=== PATIENT | female | born 1955 | race Hispanic/Latino ===

== ENCOUNTER 2021-03-26 06:24 | Day surgery (SDC) | payer MEDICARE ==
[2021-03-26 07:32] LABS: Hematocrit 35.9 % (30.3-42.9); Hemoglobin 11.4 gm/dl (10.1-14.3); Mean Corpuscular HGB Conc 32 % (30-34); Mean Corpuscular Volume 81 fl (79-97); Platelet Count 326 K/mm3 (140-440); Red Blood Count 4.45 M/mm3 (3.65-5.03); Red Cell Distribution Width 15.2 % (13.2-15.2)
[2021-03-26 07:44] LABS: INR 0.96 (0.87-1.13)
[2021-03-26 07:45] LABS: BUN/Creatinine Ratio 22; Blood Urea Nitrogen 20 mg/dL (7-17); Calcium 9.9 mg/dL (8.4-10.2); Hemolysis Index 35; Partial Thromboplastin Time 36.5 Sec. (24.2-36.6)
[2021-03-26] MEDS ORDERED: SODIUM CHLORIDE 0.9% 500 ML 500 ML IV SCH (08:00)
[2021-03-26] MEDS ORDERED: HEPARIN 10,000 UNITS/10 ML VIAL ONE ×3 (08:38→10:30)
[2021-03-26] MEDS ORDERED: HEPARIN/NS 5000 UNIT/500ML 1,000 ML IR ONE (08:38)
[2021-03-26] MEDS ORDERED: LIDOCAINE (2%) 20 MG/1 ML VIAL 20 ML MDV INFILTRATI ONE (08:38)
--- NOTE | 2021-03-26 09:40 | Short Stay Summary ---
Short Stay Documentation Date of service: 03/26/21 Narrative H&P: 66-year-old female with past medical history of left lower extremity phlegmasia status post thrombectomy, stenting, and fasciotomies by Dr. Valverde who subsequently developed 3-4+ swelling of the left lower extremity refractory to radiofrequency closure of the superficial veins. Diagnostic venography was then performed demonstrating occluded left iliac vein stent with extrinsic compression and underlying May Thurner. Patient presents for treatment. Risk, benefits, and alternatives discussed. Patient agrees with procedure. - History Principal diagnosis: Extrinsic compression, DVT, left iliac vein occlusion H&P: obtained from office - Allergies and Medications Current Medications: Allergies clindamycin Allergy (Verified 03/26/21 07:46) Hives ranitidine [From Zantac] Allergy (Verified 03/26/21 07:23) Hives Sulfa (Sulfonamide Antibiotics) Allergy (Verified 03/26/21 07:23) Hives Home Medications Medication Instructions Recorded Confirmed Last Taken Type Apixaban [Eliquis] 5 mg PO BID 03/26/21 03/26/21 03/26/21 History 5 mg Dulaglutide [Trulicity] 1.5 mg SQ 1XW 03/26/21 03/26/21 03/23/21 History 1.5 mg Esomeprazole Magnesium [Nexium 20 mg PO DAILY 03/26/21 03/26/21 03/26/21 History 24Hr] 20 mg Gabapentin 300 mg PO DAILY 03/26/21 03/26/21 03/25/21 History 1 tab Insulin Lispro [Humalog 100 100 unit SQ TID 03/26/21 03/26/21 03/26/21 History UNITS/ML Kwikpen] Oxycodone HCl/Acetaminophen 1 each PO Q4HR 03/26/21 03/26/21 Unknown History [Oxycodone-Acetaminophen 10-325] Propranolol HCl [Inderal Xl] 80 mg PO DAILY 03/26/21 03/26/21 03/26/21 History 1 tab Rosuvastatin Calcium [Crestor] 40 mg PO DAILY 03/26/21 03/26/21 03/25/21 History 1 tab Valsartan/Hydrochlorothiazide 320 mg PO DAILY 03/26/21 03/26/21 03/25/21 History [Valsartan-Hctz 320-12.5 mg Tab] 1 tab amLODIPine [Norvasc] 5 mg PO DAILY 03/26/21 03/26/21 03/26/21 History 5 mg Active Medications Sodium Chloride (Nacl 0.9% 500 Ml) 500 mls @ 50 mls/hr IV DIRECT BRANDO Stop: 03/26/21 21:00 - Physical exam General appearance: no acute distress Lungs: Normal air movement Gastrointestinal: normal Extremities: abnormal (3+ edema LLE) - Brief post op/procedure progress note Date of procedure: 03/26/21 Pre-op diagnosis: LLE DVT, May thurner, extrinsic compression, history of phlegmasia Post-op diagnosis: same Procedure: 1. Ultrasound-guided access of the left superficial femoral vein. 2. Venography of the left lower extremity. 3. Venous thrombectomy of the left common iliac vein with a 7 German poultry cleaner thrombectomy device 4. Aspiration thrombectomy of the left common iliac vein with an 8 German MPA guide and 6 German MPA guide 5. Angioplasty of the left common iliac vein, left external iliac vein, and left common femoral vein with a 12 mm x 40 mm angioplasty balloon. 6. Angioplasty of the left common iliac vein with a 14 mm x 40 mm angioplasty balloon 7. Intravascular ultrasound of the IVC, left common iliac vein, left external iliac vein, and left common femoral vein 8. Stenting of the left common iliac vein with a 14 mm x 150 mm Abre stent 9. Postdilatation of the left common iliac vein with a 14 mm x 40 mm angioplasty balloon 10. Post dilatation of the left external iliac vein and common femoral vein with a 12 mm x 40 mm angioplasty balloon Anesthesia: local (w/ conscious sedation) Surgeon: JEAN SANTACRUZ Estimated blood loss: minimal Condition: stable - Hospital course Hospital course: Patient tolerated procedure well. No immediate postprocedural complications. - Disposition Condition at discharge: Stable Disposition: 01 HOME / SELF CARE / HOMELESS - Discharge Diagnoses (1) Deep vein thrombosis (DVT) of iliac vein of left lower extremity Status: Acute (2) Vein compression Status: Acute Short Stay Discharge Plan Activity: advance as tolerated Weight Bearing Status: Weight Bear as Tolerated (do not lift more than 10 lbs for 1 week) Diet: regular Wound: keep clean and dry Follow up with: MIGEL WRIGHT MD [Primary Care Provider] - 7 Days Prescriptions: oxyCODONE /ACETAMINOPHEN [Percocet 5/325 mg] 1 tab PO Q4HR PRN #25 tablet PRN Reason: Pain
[2021-03-26] MEDS: fentaNYL 100 MCG/2 ML INJ ONE ×4 (10:11→11:20)
[2021-03-26] MEDS: MIDAZOLAM 2 MG/2 ML INJ ONE ×5 (10:11→11:20)
[2021-03-26] MEDS ORDERED: fentaNYL 100 MCG/2 ML INJ ONE ×2 (10:23→11:17)
[2021-03-26] MEDS ORDERED: diphenhydrAMINE 50 MG/ML VIAL ONE (10:30)
[2021-03-26] MEDS ORDERED: MIDAZOLAM 2 MG/2 ML INJ ONE (11:17)
--- NOTE | 2021-03-26 11:54 | Operative Report ---
Operative Report Operative Report: EXAM: 1. Ultrasound-guided access of the left superficial femoral vein. 2. Venography of the left lower extremity. 3. Selection of the left iliac veins and IVC with venography. 4. Venous thrombectomy of the left common iliac vein with a 7 Turkish hospital cleaner thrombectomy device 5. Aspiration thrombectomy of the left common iliac vein with an 8 Turkish MPA guide and 6 Turkish MPA guide 6. Angioplasty of the left common iliac vein, left external iliac vein, and left common femoral vein with a 12 mm x 40 mm angioplasty balloon. 7. Angioplasty of the left common iliac vein with a 14 mm x 40 mm angioplasty balloon 8. Intravascular ultrasound of the IVC, left common iliac vein, left external iliac vein, and left common femoral vein 9. Stenting of the left common iliac vein with a 14 mm x 150 mm Abre stent 10. Postdilatation of the left common iliac vein with a 14 mm x 40 mm angioplasty balloon 11. Post dilatation of the left external iliac vein and common femoral vein with a 12 mm x 40 mm angioplasty balloon DATE: 03/26/2021 DIE MACHINE OPERATOR: JEAN SANTACRUZ MD INDICATION: Phlegmasia of the left lower extremity requiring venous stenting, venous thrombectomy, and fasciotomies of the left lower extremity for May Thurner with DVT and extrinsic compression of the vein. Patient now presents with 3-4+ edema of the left lower extremity and findings of diagnostic venography with extrinsic compression of the left lower extremity, DVT of the left common iliac vein stent and May Thurner. MEDICATIONS: Please see nursing report for full details. DEVICES: 12 mm x 40 mm angioplasty balloon 14 mm x 40 mm angioplasty balloon 7 Turkish hospital cleaner 8 Turkish MPA guide and 6 Turkish MPA guide 14 mm x 150 mm Abre stent CONTRAST: Please see Stapler Hand report for full details PROCEDURE: The risks, benefits, and alternatives were discussed with the patient; written informed consent was obtained. The patient was placed in a frog-leg position and the left superficial femoral vein was evaluated and was patent. The left superficial femoral vein was accessed with a 21-gauge micropuncture needle under direct ultrasound guidance. 0.018 inch wire was passed into the left iliac vein and the needle was then exchanged for transitional dilator. 0.035 inch Glidewire advantage was then negotiated into the left occluded common iliac vein stent and then the sheath was serially dilated with ultimate placement of an 8 Turkish 25 cm [place] sheath. The patient was heparinized. Digital subtraction angiography was performed demonstrating patency of the left profunda femoral vein, mid and lower common femoral vein, and left superficial femoral vein. The left upper common femoral vein was greater than 50% stenotic, and the left external iliac vein was occluded with chronic deep venous thrombus in the left common iliac vein stent was occluded with chronic deep venous thrombus. 0.035 inch wire was then passed through the occluded stent and sheath was then passed into the common iliac vein. The IVC was selected and digital subtraction angiography was performed confirming position within the IVC which was patent. 7 Turkish hospital cleaner thrombectomy device was used to perform thrombectomy of the left common iliac vein and afterwards aspiration thrombectomy was performed with 8 Turkish MPA guide and 6 Turkish MPA guide to remove the residual thrombus. 12 mm x 40 mm angioplasty balloon was then used to perform angioplasty of the left common iliac vein external iliac vein and upper portion of the common femoral vein. Digital subtraction angiography was performed demonstrating some residual thrombus in the left common iliac vein stent but rater than 75% thrombus removal and less than 20% residual narrowing of the left external iliac vein except for the more proximal portion of the external iliac vein where there was greater than 50% stenosis. The left common femoral vein had less than 10% stenosis. 14 mm x 40 mm angioplasty balloon was used to perform angioplasty of the left common iliac vein and digital subtraction angiography was performed demonstrating almost complete thrombus removal of the left common iliac vein with 50% stenosis of the more proximal external iliac vein. The left common femoral vein was now essentially patent. Intravascular ultrasound was then performed demonstrating that the stent was distal to the May Thurner lesion and this was the reason for the stent failure and the stent needed to be extended more proximally. There is also approximately 20% thrombus in the common iliac vein stent and significant irregularity compatible with 50% stenosis within the proximal portion of the left external iliac vein compatible with the venographic findings of the steno sis. The left common femoral vein was patent. The stent could be sized at 14 mm with the vein measuring 12 mm. 14 mm x 150 mm Abre stent was then deployed in the left common iliac vein at the level of the may Thurner lesion and extended distally. This was postdilated with a 14 mm balloon in the common iliac vein and 12 mm balloon in the external iliac vein. Digital subtraction angiography was performed demonstrating no residual stenosis with excellent flow into the IVC and no further collateral visualization. The left common femoral vein, external iliac vein, and common iliac vein are now patent. The stent is well expanded within the previously placed Wallstent. At this point, all wires, catheters, and sheaths were removed pressure was held until hemostasis was achieved. Pressure bandage applied. FINDINGS: Patient tolerated the procedure well. No immediate postprocedural complications. IMPRESSION: Successful thrombectomy of the left iliac vein. Successful angioplasty of the left common iliac vein, external iliac vein, and common femoral vein. Successful stenting of the left common iliac vein. Successful selection of the IVC with angiography. Successful intravascular ultrasound of the left lower extremity as described above.
[2021-03-26] MEDS ORDERED: ACETAMINOPHEN 500 MG TAB ONE (14:32)
[2021-03-26] MEDS ORDERED: ACETAMINOPHEN 500 MG TAB PO ONE (14:35)
[2021-03-26] MEDS ORDERED: APIXABAN 5 MG TAB ONE (15:32)
[2021-03-26] MEDS ORDERED: APIXABAN 5 MG TAB PO SCH (16:00)
[2021-03-26 16:15] VITALS: BP 145/61
== END 2021-03-26 06:25 | disposition home or self-care (01) ==
LOC: CATHLABREC 06:24
PROVIDERS: ATTEND Radiology Diagnostic Radiology
DX: I70.213 Atherosclerosis of native arteries of extremities with intermittent claudication, bilateral legs (principal); I87.323 Chronic venous hypertension (idiopathic) with inflammation of bilateral lower extremity; I87.1 Compression of vein; I89.0 Lymphedema, not elsewhere classified; I87.312 Chronic venous hypertension (idiopathic) with ulcer of left lower extremity; E66.9 Obesity, unspecified; Z68.41 Body mass index [BMI] 40.0-44.9, adult; E78.00 Pure hypercholesterolemia, unspecified; I11.9 Hypertensive heart disease without heart failure; E11.51 Type 2 diabetes mellitus with diabetic peripheral angiopathy without gangrene; M81.0 Age-related osteoporosis without current pathological fracture; M19.90 Unspecified osteoarthritis, unspecified site; Z86.73 Personal history of transient ischemic attack (TIA), and cerebral infarction without residual deficits; Z86.718 Personal history of other venous thrombosis and embolism; Z79.899 Other long term (current) drug therapy; Z98.890 Other specified postprocedural states
CPT/HCPCS: 36415; 37187; 37238; 37248; 37249; 37252; 37253; 75820; 76937; 80048; 85027; 85610; 85730; 99156; 99157; C1725; C1753; C1757; C1769; C1876; C1887; C1894; J1200; J1644; J2250; J3010; J3490; J7040; Q9967